=== PATIENT | male | born 1965 | race Caucasian/White ===

== ENCOUNTER 2020-10-13 17:50 | Emergency (ER) | payer BC ==
--- NOTE | 2020-10-13 18:20 | ERPHSYRPT ---
- History of Present Illness Source: patient Exam Limitations: no limitations Patient Subjective Stated Complaint: money position officer states "We have been looking for him for 3 dyas. He has been in arguments with his and he sent his friend a suicide emal. We are going to ID this patient.". Pt stated "My PTSD brings me here." Triage Nursing Assessment: Pt presented alert and oriented X3, skin pwd Pt ambulates with an upright steady gait, able to speak in clear full sentences. pt in no apparent respiratory distress. Pt on phone with one of his friends eloise sing him that he is admitting himself to the hospital. Timing/Duration: today Severity of Symptoms-Max: moderate Severity of Symptoms-Current: moderate Context related to: other Suicidal thoughts: specific plan Associated Symptoms: denies symptoms Previous symptoms: same symptoms as today Hx Tetanus, Diphtheria Vaccination/Date Given: Yes Hx Influenza Vaccination/Date Given: Yes Hx Pneumococcal Vaccination/Date Given: No Immunizations Up to Date: Yes <ROSIE ADAMSON - Last Filed: 10/13/20 18:26> <DIMITRI GRANADOS - Last Filed: 10/14/20 00:37> - History of Present Illness Time Seen by Provider: 10/13/20 18:16 Physician History: money position officer states "We have been looking for him for 3 days. He has been in arguments with his and he sent his friend a suicide email. We are going to ID this patient." Pt stated "My PTSD brings me here." Denies any agitations. Patient has been fighting for his disability benefits and causing himm lots of stress. (ROSIE ADAMSON) Allergies/Adverse Reactions: tiazadine Allergy (Intermediate, Uncoded 10/13/20 18:09) tremors Home Medications: Unobtainable 10/13/20 [History] Travel Risk - International Travel Have you traveled outside of the country in past 3 weeks: No - Coronavirus Screening Are you exhibiting any of the following symptoms?: No Close contact with a COVID-19 positive Pt in past 14-21 Days: No - Vaccine Status Have you recieved a Covid-19 vaccination: Yes [employer] Super[employer]: Moderna - Vaccination Dates Date of 2cond Vaccination (if applicable): 03/20/2020 <ROSIE ADAMSON - Last Filed: 10/13/20 18:26> - Past Medical History Pertinent Past Medical History: Yes Neurological History: No Pertinent History ENT History: No Pertinent History Cardiac History: No Pertinent History Respiratory History: No Pertinent History Endocrine Medical History: No Pertinent History Musculoskeletal History: Arthritis, Degenerative Disk Disease, Fibromyalgia GI Medical History: GERD History: No Pertinent History Psycho-Social History: Anxiety, Depression, Other Male Reproductive Disorders: Other Other Medical History: adjustment disorder. PTSD - Past Surgical History Past Surgical History: No - Social History Smoking Status: Never smoker Exposure to second hand smoke: No Drug Use: none Patient Lives Alone: Yes <JUAN DIEGO Filed: 10/13/20 18:26> - Review of Systems Constitutional: No Symptoms Eyes: No Symptoms Ears, Nose, & Throat: No Symptoms Respiratory: No Symptoms Cardiac: No Symptoms Abdominal/Gastrointestinal: No Symptoms Genitourinary Symptoms: No Symptoms Musculoskeletal: No Symptoms Skin: No Symptoms Neurological: No Symptoms Psychological: Anxiety, Depression, Suicidal Ideations, Emotional Lability, Mood Changes, No Alcohol Abuse, No Drug Abuse, No Homicidal Ideations, No Hallucinations, No Memory Loss Endocrine: No Symptoms Hematologic/Lymphatic: No Symptoms Immunological/Allergic: No Symptoms <JUAN DIEGO Filed: 10/13/20 18:26> - Physical Exam General Appearance: no apparent distress Eyes, Ears, Nose, Throat Exam: normal ENT inspection Neck Exam: normal inspection Respiratory Exam: normal breath sounds Cardiovascular Exam: regular rate/rhythm Gastrointestinal/Abdominal Exam: soft Extremities Exam: normal inspection Neurological Exam: alert Appearance: appropriate appearance Behavior/Eye Contact/Speech: alert & cooperative Thoughts/Hallucinations: normal thought pattern Skin Exam: normal color SpO2 Interpretation: normal SpO2: 98 O2 Delivery: Room Air <JUAN DIEGO Filed: 10/13/20 18:26> - Nursing Vital Signs Nursing Vital Signs: Initial Vital Signs Temperature 97.8 F 10/13/20 17:51 Pulse Rate 98 H 10/13/20 17:51 Respiratory Rate 20 10/13/20 17:51 Blood Pressure 148/104 10/13/20 17:51 O2 Sat by Pulse Oximetry 98 10/13/20 17:51 Pain Scale Pain Intensity 0 - Course Nursing assessment & vital signs reviewed: Yes EKG Interpreted by Me: Sinus Rhythm - Radiology Exams Chest X-ray Interpretation: Reviewed by me <JANAE ADAMSONSH - Last Filed: 10/13/20 18:26> Ordered Tests: Active Orders 24 hr Category Date Time Status EKG-ER Only STAT Care 10/13/20 18:02 Active Psychiatric Consult STAT Cons 10/13/20 18:02 Active CHEST 2 VIEWS (PA AND LAT) Stat Exams 10/13/20 18:03 Completed CBC W DIFF Stat Lab 10/13/20 18:24 Completed CMP Stat Lab 10/13/20 18:24 Completed ETHYL ALCOHOL Stat Lab 10/13/20 18:24 Completed Urine Triage Profile Stat Lab 10/13/20 19:37 Completed Lab/Rad Data: Laboratory Result Diagrams 10/13/20 18:24 10/13/20 18:24 Laboratory Results 10/13/20 10/13/20 10/13/20 Range/Units 19:37 18:24 18:24 WBC 7.6 (4.0-10.5) K/mm3 RBC 5.70 H (4.1-5.6) M/mm3 Hgb 16.2 (12.5-18.0) gm/dl Hct 50.0 (42-50) % MCV 87.7 (78-100) fl MCH 28.4 (26-32) pg MCHC 32.4 (32-36) g/dl RDW 13.8 (11.5-14.0) % Plt Count 215 (150-450) K/mm3 MPV 10.6 (7.5-11.0) fl Gran % 63.3 (36.0-66.0) % Eos # (Auto) 0.01 (0-0.5) Absolute Lymphs (auto) 2.05 (1.0-4.6) Absolute Monos (auto) 0.70 (0.0-1.3) Lymphocytes % 27.1 (24.0-44.0) % Monocytes % 9.2 (0.0-12.0) % Eosinophils % 0.1 (0.00-5.0) % Basophils % 0.3 (0.0-0.4) % Absolute Granulocytes 4.79 (1.4-6.9) Basophils # 0.02 (0-0.4) Sodium 141 (137-145) mmol/L Potassium 3.9 (3.5-5.1) mmol/L Chloride 106 (98-107) mmol/L Carbon Dioxide 22 (22-30) mmol/L Anion Gap 17.6 H (5-15) MEQ/L BUN 13 (9-20) mg/dL Creatinine 1.04 (0.66-1.25) mg/dL Estimated GFR > 60.0 ML/MIN Glucose 129 H (74-106) mg/dL Calcium 10.1 (8.4-10.2) mg/dL Total Bilirubin 1.20 (0.2-1.3) mg/dL AST 93 H (17-59) U/L ALT 138 H (0-50) U/L Alkaline Phosphatase 93 (38-126) U/L Serum Total Protein 8.9 H (6.3-8.2) g/dL Albumin 5.0 (3.5-5.0) g/dL Urine Opiates Level NEGATIVE (NEGATIVE) Ur Methadone NEGATIVE (NEGATIVE) Urine Barbiturates NEGATIVE (NEGATIVE) Ur Phencyclidine (PCP) NEGATIVE (NEGATIVE) Urine Amphetamine NEGATIVE (NEGATIVE) U Benzodiazepine Level NEGATIVE (NEGATIVE) Urine Cocaine NEGATIVE (NEGATIVE) Urine Marijuana (THC) NEGATIVE (NEGATIVE) Ethyl Alcohol < 10 (0-10) mg/dL - Progress Progress: unchanged, improved, re-examined Counseled pt/family regarding: lab results <DIMITRI GRANADOS - Last Filed: 10/14/20 00:37> - Progress Progress Note: 10/13/20 23:12 pt wanted be sure we knew his [place] mental health care outpt provider is Gladys Fox. 10/14/20 00:33 medical decision making: [facility] reviewed chart and had a long telephone interview with pt. Matthew from [facility] interviewed pt. after discussing case with [facility] heavy equipment operator/doctor, pt is allowed to be discharged to home to have a safety plan in place and follow up with mental health provider as an outpt. (DIMITRI GRANADOS) <ROSIE ADAMSON - Last Filed: 10/13/20 18:26> - Departure Departure Disposition: Home Critical Care Time: No <DIMITRI GRANADOS - Last Filed: 10/14/20 00:37> - Departure Clinical Impression: Suicidal ideation Condition: Stable Referrals: Provider,Unknown [Primary Care Provider] - Additional Instructions: follow safety plan set in place. follow up with mental health provider as an outpatient as instructed by [facility]. take your medications as prescribed
[2020-10-13 18:27] LABS: Absolute Neutrophil Ct (ANC) 4.79 (1.4-6.9); BASOPHIL % 0.3 % (0.0-0.4); Basophil (Absolute #) 0.02 (0-0.4); Eosinophil % 0.1 % (0.00-5.0); Eosinophil (Absolute #) 0.01 (0-0.5); Hemoglobin 16.2 gm/dl (12.5-18.0); Lymphocyte (Absolute #) 2.05 (1.0-4.6); Lymphocytes % 27.1 % (24.0-44.0); Mean Cell Volume 87.7 fl (78-100); Mean Corpuscular Hemoglobin 28.4 pg (26-32); Mean Corpuscular Hgb Concent. 32.4 g/dl (32-36); Mean Platelet Volume 10.6 fl (7.5-11.0); Monocytes % 9.2 % (0.0-12.0); Neutrophil % 63.3 % (36.0-66.0); Platelet Count 215 K/mm3 (150-450); Red Cell Distribution Width 13.8 % (11.5-14.0); White Blood Count 7.6 K/mm3 (4.0-10.5)
[2020-10-13 18:38] LABS: ALKALINE PHOSPHATASE 93 U/L (38-126); ANION GAP 17.6 MEQ/L (5-15); BLOOD UREA NITROGEN 13 mg/dL (9-20); CHLORIDE 106 mmol/L (98-107); Calcium 10.1 mg/dL (8.4-10.2); Carbon Dioxide 22 mmol/L (22-30); Creatinine 1 1.04 mg/dL (0.66-1.25); EST GLOMERULAR FILTRATION RATE > 60.0 ML/MIN; ETHYL ALCOHOL < 10 mg/dL (0-10); Glucose 129 mg/dL (74-106); Potassium 3.9 mmol/L (3.5-5.1); SGOT/AST 93 U/L (17-59); SGPT/ALT 138 U/L (0-50); SODIUM 141 mmol/L (137-145); Total Protein 8.9 g/dL (6.3-8.2)
[2020-10-13 19:59] LABS: Amphetamine,Urine NEGATIVE (NEGATIVE); Barbiturate,Urine NEGATIVE (NEGATIVE); Benzodiazepine,Urine NEGATIVE (NEGATIVE); Cocaine,Urine NEGATIVE (NEGATIVE); Methadone,Urine NEGATIVE (NEGATIVE); Opiate,Urine NEGATIVE (NEGATIVE); PCP,Urine NEGATIVE (NEGATIVE); THC,Urine NEGATIVE (NEGATIVE)
--- NOTE | 2020-10-13 20:47 | XRAY ---
Indication: Psychiatry clearance. Comparison: None PA/lateral chest clear. Heart and mediastinal structures within normal limits. Bony thorax intact with minimal degenerative changes. Impression: Radiographically nonacute chest.
[2020-10-14 01:10] VITALS: BP 118/76; PULSE 72; O2SAT 98
== END 2020-10-14 01:00 | disposition home or self-care (01) ==
LOC: ED 17:50
DX: F41.8 Other specified anxiety disorders (principal)
CPT/HCPCS: 36415; 71046; 80053; 80307; 85025; 90791; 93005; 99285; Q3014; G0480